=== PATIENT | female | born 1990 | race Caucasian/White ===

== ENCOUNTER 2017-01-03 18:24 | Emergency (ER) | payer MEDICAID ==
[2017-01-03 19:07] LABS: BILIRUBIN,URINE NEGATIVE (NEGATIVE); PH,URINE 6.5 PH (5.0-7.5)
[2017-01-03 19:08] LABS: HCG UR QUAL NEGATIVE; UA CHARGE (STRIP ONLY) YES; UR CULTURE IF IND NOT INDICATED
[2017-01-03] MEDS ORDERED: KETOROLAC 60 MG/2 ML VIAL IVP STA (19:21)
--- NOTE | 2017-01-03 19:23 | ED Physician Documentation ---
PD HPI ABD PAIN - Stated complaint Stated Complaint: abd pain - Chief complaint Chief Complaint: Abd Pain - History obtained from History obtained from: Patient, Family - History of Present Illness Timing - onset: How many days ago (5) Timing - duration: Days (5) Timing - details: Gradual onset, Waxing and waning Pain level max: 7 Pain level now: 7 Quality: Aching, Sharp, Pain Location: Other (R pelvic pain) Improved by: Laying still Worsened by: Moving Associated symptoms: No: Fever, Nausea, Vomiting, Hematemesis, Diarrhea, Constipation, Melena, Hematochezia, Dysuria, Hematuria Similar symptoms before: Has not had sx before Recently seen: Not recently seen - Additional information Additional information: LMP 2 weeks ago Review of Systems Ten Systems: 10 systems reviewed and negative Constitutional: denies: Fever, Chills Nose: denies: Rhinorrhea / runny nose, Congestion Cardiac: denies: Chest pain / pressure Respiratory: denies: Cough GI: denies: Abdominal Pain, Nausea, Vomiting, Diarrhea : denies: Dysuria, Frequency, Hesitancy, Discharge, Now EGA Skin: denies: Rash Musculoskeletal: denies: Neck pain, Back pain Neurologic: denies: Headache PD PAST MEDICAL HISTORY - Past Medical History Respiratory: Asthma Psych: Depression, Anxiety - Past Surgical History Past Surgical History: No - Present Medications Home Medications: Ambulatory Orders Medication Instructions Recorded Confirmed Prazosin [Minipress] 2 mg PO DAILY 10/24/15 10/24/15 buPROPion [Wellbutrin Sr] 200 mg PO DAILY 10/24/15 10/24/15 Albuterol Sulf [Ventolin Hfa PRN 01/03/17 Inhaler] Amitriptyline [Elavil] 0 mg PO QPM 01/03/17 01/03/17 Hydrocodone/Acetaminophen 1 - 2 each PO Q6H PRN #14 tablet 01/03/17 [Hydrocodon-Acetaminophen 5-325] Ibuprofen [Motrin] 800 mg PO Q8H PRN #30 tablet 01/03/17 Venlafaxine ER [Effexor ER] 1 tab DAILY 01/03/17 01/03/17 - Allergies Allergies/Adverse Reactions: Allergies Allergy/AdvReac Type Severity Reaction Status Date / Time No Known Drug Allergies Allergy Verified 01/03/17 18:37 - Social History Does the pt smoke?: No Smoking Status: Never smoker Does the pt drink ETOH?: No Does the pt have substance abuse?: No - Immunizations Immunizations are current?: Yes PD ED PE NORMAL - Vitals Vital signs reviewed: Yes - General General: Alert and oriented X 3, No acute distress - HEENT HEENT: Moist mucous membranes - Neck Neck: Supple, no meningeal sign - Cardiac Cardiac: RRR - Respiratory Respiratory: No respiratory distress, Clear bilaterally - Abdomen Abdomen: Soft, Non distended, Other (TTP R low pelvic) - Rectal Rectal: Pt declined - Back Back: No CVA TTP, No spinal TTP - Derm Derm: Warm and dry - Neuro Neuro: Alert and oriented X 3 - Psych Psych: Normal mood, Normal affect Results - Vitals Vitals: Vital Signs - 24 hr 01/03/17 01/03/17 01/03/17 18:34 21:14 23:23 Temperature 36.5 C Heart Rate 92 81 77 Respiratory 20 16 16 Rate Blood Pressure 125/71 119/77 122/72 O2 Saturation 99 98 97 Oxygen O2 Source Room air - Labs Labs: Laboratory Tests 01/03/17 01/03/17 01/03/17 18:58 19:10 19:10 WBC 8.1 RBC 4.06 L Hgb 12.6 Hct 36.7 L MCV 90.4 MCH 30.9 MCHC 34.2 RDW 13.1 Plt Count 278 MPV 7.8 L Neut # 5.3 Lymph # 2.2 Ray # 0.4 Eos # 0.2 Baso # 0.1 Absolute Nucleated RBC 0.00 Nucleated RBCs 0.0 Sodium 138 Potassium 4.0 Chloride 106 Carbon Dioxide 24 Anion Gap 8.0 BUN 10 Creatinine 0.8 Estimated GFR (MDRD) 88 L Glucose 119 H Calcium 9.2 Total Bilirubin 0.5 AST 24 ALT 31 Alkaline Phosphatase 64 Total Protein 7.5 Albumin 3.7 Globulin 3.8 Albumin/Globulin Ratio 1.0 Lipase 17 L Urine Color YELLOW Urine Clarity CLEAR Urine pH 6.5 Ur Specific [place] 1.025 Urine Protein NEGATIVE Urine Glucose (UA) NEGATIVE Urine Ketones NEGATIVE Urine Occult Blood NEGATIVE Urine Nitrite NEGATIVE Urine Bilirubin NEGATIVE Urine Urobilinogen 0.2 (NORMAL) Ur Leukocyte Esterase NEGATIVE Ur Microscopic Review NOT INDICATED Urine Culture Comments NOT INDICATED Urine HCG, Qual NEGATIVE - Rads (name of study) pelvic US Radiology: Prelim report reviewed, EMP read contemporaneously, See rad report ( Enlarged right ovary with a complex 2.9 cm right ovarian cyst most consistent with a hemorrhagic cyst or corpus luteum. Probable 3.6 cm right ovarian follicle. Enlarged right ovary corresponds to the area of pain. Possible venous flow on the transvaginal imaging. Arterial flow not well seen on transabdominal or transvaginal imaging. Suboptimal doppler flow may be due to body habitus and position of the ovaries along with large cysts. Possible venous flow would argue against complete torsion although intermittent torsion not excluded. 2. No left ovarian mass or torsion. 3. No endometrial mass or polyp. Normal uterus. ) PD MEDICAL DECISION MAKING - ED course Complexity details: reviewed results, re-evaluated patient, considered differential, d/w patient, d/w family, d/w obiee consultant ED course: Patient is a 26-year-old female with right pelvic pain. Found to have an enlarged right ovary with a complex right ovarian cyst, likely hemorrhagic cyst. Also a 3.6 cm right ovarian follicle. There was a question of possible intermittent torsion or torsion. Consulted gynecology, Dr. Miranda who came and evaluated the patient in the emergency department. Does not feel the patient has an ovarian torsion and feels that she is stable for discharge. Patient will follow up as an outpatient. Pain well controlled in the emergency department. No fevers. No vomiting. Patient counseled regarding signs and symptoms for which I believe and urgent re-evaluation would be necessary. Patient with good understanding of and agreement to plan and is comfortable going home at this time This document was made in part using voice recognition software. While efforts are made to proofread this document, sound alike and grammatical errors may occur. Departure - Departure Disposition: 01 Home, Self Care Clinical Impression: Ovarian cyst Qualifiers: Laterality: right Qualified Code(s): N83.201 - Unspecified ovarian cyst, right side Condition: Good Instructions: ED Cyst Ovarian Follow-Up: Claribel Schneider ARNP [Primary Care Provider] - Within 1 week Prescriptions: Hydrocodone/Acetaminophen [Hydrocodon-Acetaminophen 5-325] 1 - 2 each PO Q6H PRN #14 tablet PRN Reason: pain Ibuprofen [Motrin] 800 mg PO Q8H PRN #30 tablet PRN Reason: PAIN &/OR FEVER Comments: Return if you worsen. This should improve over the next few days to a week. Do not drink alcohol or drive while on narcotic pain medicine. Note that many narcotic pain relievers also contain tylenol/acetaminophen. Please ensure that your total dose of acetaminophen from all sources does not exceed 3 grams (3000mg) per day. You may constipated on this medication, take a stool softener such as "Colace" twice a day while you are on it. Also recommend a ybza-qrb-iyymfih laxative such as senna or MiraLAX any day that you do not have a bowel movement. If you received narcotic pain medication in the emergency department, do not drive or operate machinery for the next 24 hours. Discharge Date/Time: 01/03/17 23:24
[2017-01-03] MEDS ORDERED: KETOROLAC 30 MG/ML VIAL IVP STA (19:25)
[2017-01-03] MEDS ORDERED: KETOROLAC 30 MG/ML VIAL ONE (19:26)
[2017-01-03 19:31] LABS: BILIRUBIN,TOTAL 0.5 mg/dL (0.2-1.0); CALCIUM 9.2 mg/dL (8.5-10.3); CREATININE 0.8 mg/dL (0.4-1.0); TOTAL PROTEIN 7.5 g/dL (6.7-8.2)
[2017-01-03 19:33] LABS: BASOPHILS # (AUTO) 0.1 10^3/uL (0.0-0.1); BASOPHILS % (AUTO) 0.7 %; EOSINOPHILS # (AUTO) 0.2 10^3/uL (0.0-0.7); EOSINOPHILS % (AUTO) 2.1 %; HCT - HEMATOCRIT 36.7 % (37.0-47.0); HGB - HEMOGLOBIN 12.6 g/dL (12.0-16.0); LYMPHOCYTES # (AUTO) 2.2 10^3/uL (1.5-3.5); LYMPHOCYTES % (AUTO) 27.5 %; MEAN CORPUSCULAR HEMOGLOBIN 30.9 pg (27.0-31.0); MEAN CORPUSCULAR HGB CONC 34.2 g/dL (32.0-36.0); MEAN CORPUSCULAR VOLUME 90.4 fL (81.0-99.0); MEAN PLATELET VOLUME 7.8 fL (7.9-10.8); MONOCYTES # (AUTO) 0.4 10^3/uL (0.0-1.0); MONOCYTES % (AUTO) 4.9 %; NEUTROPHILS # (AUTO) 5.3 10^3/uL (1.5-6.6); NEUTROPHILS % (AUTO) 64.8 %; RED BLOOD COUNT 4.06 10^6/uL (4.20-5.40); RED CELL DISTRIBUTION WIDTH 13.1 % (12.0-15.0); UNCORRECTED WHITE BLOOD COUNT 8.1 x10^3/uL; WHITE BLOOD COUNT 8.1 x10^3/uL (4.8-10.8)
--- NOTE | 2017-01-03 21:32 | Ultrasound Report ---
EXAM: PELVIC ULTRASOUND EXAM DATE: 01/03/2017 09:02 PM. CLINICAL HISTORY: R pelvic pain. COMPARISON: None. TECHNIQUE: Realtime transabdominal pelvic scan performed to identify the uterus and adnexa and as an overview of other pelvic structures, followed by transvaginal scan to provide greater detail of the u terus and adnexa, with static image documentation. FINDINGS: Uterus: 9.1 x 4.1 x 5.4 cm, volume 103 cc. Anteverted position. Normal overall size and echotexture. Masses: None. Endometrium: 11 mm. Normal. Cervix: Unremarkable. Right Ovary: Not well seen. Probable right ovary measures 6.4 x 3.8 x 3.6 cm, volume 46.2 cc. Complex 3.9 x 3.4 x 2.8 cm right ovarian cystic structure with lacelike debris. No vascular components or mu ral nodules. 3.6 x 1.8 x 2.6 cm hypoechoic right ovarian cystic structure without mural nodules or th ickened septations most consistent with a follicle. Unable to establish color or Doppler flow on the transabdominal imaging. Color flow is seen probably adjacent to this right ovary on transabdominal i maging. Possibly venous flow on the transvaginal imaging in the right ovary. Left Ovary: 2.1 x 1.6 x 1.2 cm, volume 2 cc. Normal echotexture and blood flow. Not well seen. Free Fluid: None. Other: None. IMPRESSION: 1. Enlarged right ovary with a complex 2.9 cm right ovarian cyst most consistent with a hemorrhagic c yst or corpus luteum. Probable 3.6 cm right ovarian follicle. Enlarged right ovary corresponds to the area of pain. Possible venous flow on the transvaginal imaging. Arterial flow not well seen on [place] sabdominal or transvaginal imaging. Suboptimal doppler flow may be due to body habitus and position of the ovaries along with large cysts. Possible venous flow would argue against complete torsion alt roxy intermittent torsion not excluded. 2. No left ovarian mass or torsion. 3. No endometrial mass or polyp. Normal uterus. Comment: Study limited by body habitus. [facility] Referring Provider Line: [phone] SITE ID: [id number]
[2017-01-03] MEDS ORDERED: HYDROcod/ACETAM 5/325 MG TABLET PO STA (23:04)
[2017-01-03] MEDS ORDERED: HYDROcod/ACETAM 5/325 MG TABLET ONE (23:14)
[2017-01-03 23:24] VITALS: BP 122/72
--- NOTE | 2017-01-04 07:54 | CONSULTATION NOTE ---
DATE OF CONSULTATION: 01/03/2017 00:00:00 REQUESTING PROVIDER: Luis Gonzalez MD IDENTIFICATION: A 26-year-old, G1, P1-0-0-1. LMP 12/17/2016. HISTORY OF PRESENT ILLNESS: The patient presents to [facility] with complaints of right lower quadrant pain. She states that the pain started last week as a dull ache. Two days ago she went to the [facility], and she states that she moved to little bit funny, and the pain hurt a lot more. On Tuesday she was having some abdominal pain, but it was tolerable. This morning she woke up, and the pain was much, much worse. The pain is described as sharp, and there is no relationship to movement. The patient states that there is also no relationship with respect to diet. She hurts when she is stationary as well as when walking. It also hurts when she is sitting on the toilet. She called her primary care at [facility], who unfortunately did not get back to her this evening. The patient states that the pain is located in the right lower quadrant and does not radiate. Currently, she states the pain is 7/8 and at worse 10/10. The pain is described as a sharp, stabbing, knife-like sensation. After the sharp pains occur, she does have a dull sensation afterwards. The pain has been a sharp and dull sensation throughout the day. Patient states that she has never had this type of pain before. Anything close to this sort of pain was when she was in labor with her son, and also when she had an episode of right lower quadrant pain in high school, which initially was thought to be appendicitis but later attributed to gastroenteritis. Patient states that she denies any fevers or chills, but she has been having some significantly loose stools in the last day as well as today. Yesterday she had 4-5 stools and today only twice. She had a more significant pain when she was having a bowel movement. She denies any hematuria. With respect to urination , she denies any difficulty emptying her bladder, dysuria, or hematuria. PAST MEDICAL HISTORY 1. Anxiety and depression. 2. Asthma. 3. Morbid obesity. PAST SURGICAL HISTORY: None. ALLERGIES: NO KNOWN ALLERGIES. MEDICATIONS 1. Prazosin 2 mg 1 tab p.o. daily. 2. Bupropion 200 mg 1 tab p.o. daily. 3. Albuterol p.r.n. 4. Amitriptyline q.p.m. 5. Venlafaxine 1 tab p.o. daily. SOCIAL HISTORY: She denies any tobacco or illicit drug use. She does consume alcohol on a rare but social basis. She is accompanied today by her fianceOdalys, whom she has been with for the last 3 years and anticipates to next February. The patient has a son, Ihsan, who was born on 11/05/2012, and apparently he is staying with his father this summer, since patient has had some psychiatric issues. Ihsan is currently getting worked up for an autism spectrum disorder. Apparently they have a lot of good programs especially for occupational therapy in [place], where he is currently residing. Her pharmacy is [facility] in [place]. Her psychiatrist is Rod Douglass MD, and her PCP is ISAC Johnson. PAST OBSTETRICAL HISTORY 1. One term spontaneous vaginal delivery of son Ihsan on 11/05/2012. 2. Patient is currently using the Ortho-Evra patch for control. She was on the Mirena IUD but felt that it affected her psychiatrically. PAST GYNECOLOGICAL HISTORY: She denies any abnormal Pap smears. When not on hormones, patient and does have irregular menses. They do not occur on a monthly basis, and apparently they are pretty long and with a large amount of blood. Patient likes this form of control but states that she eventually would like to have children with her fianceOdalys. FAMILY HISTORY: Noncontributory. REVIEW OF SYSTEMS: Negative unless otherwise stated. OBJECTIVE VITAL SIGNS: Temperature is 36.5, heart rate 92, respiratory rate 20, and blood pressure 125/71, O2 saturation 99. GENERAL: The patient is an obese female with artificially dyed hair, which is pinkish in coloration. She does have her roots her natural color of red. When I entered the room, she was smiling and talking with her fiance, Odalys. She appears to be quite comfortable on the gurney. After I excused myself to get some equipment and returned, both she and her fiance were on their respective cell phones, sitting there quite comfortably again. HEENT: Within normal limits. ABDOMEN: Obese with generalized tenderness in the left lower quadrant. FEMALE EXAM: EGBUS within normal limits. Vagina is pink and moist. Cervix without any cervical motion tenderness. Adnexal exam very difficult to appreciate, given the patient's body habitus. There is some generalized right lower quadrant pain and tenderness, but I could not appreciate the exact location of the ovaries. LABORATORY: Urinalysis is negative, as is the hCG qualitative screen. IMAGING: Prelim of the pelvic ultrasound was indeterminate. It was not confidently identified if there was or was not any flow to the right adnexa. There appeared to be 2 cysts, 1 hemorrhagic and 1 simple. ASSESSMENT 1. A 26-year-old, G1, P1-0-0-1. 2. Right lower quadrant pain. I do not think it is ovarian torsion at this time. PLAN: After observing the patient in the emergency department, I do not feel that she has ovarian torsion at this time. It is, however, the differential diagnosis, as well as gastroenteritis, given her history of diarrhea. I would recommend at this time that the patient be monitored and given pain medications , and to return should she have any worsening symptoms of her pain. I will be happy consult on the patient if her symptoms change. JOB #: [id number] EXT JOB #:[id number] IRVING
== END 2017-01-03 23:24 | disposition home or self-care (01) ==
LOC: ED 18:24
DX: N83.201 Unspecified ovarian cyst, right side (principal); F41.8 Other specified anxiety disorders; J45.909 Unspecified asthma, uncomplicated; E66.01 Morbid (severe) obesity due to excess calories
CPT/HCPCS: 36415; 76830; 76856; 80053; 81003; 81025; 83690; 85025; 93975; 96374; 99283; 99284; A9270; 81001; 87086

== ENCOUNTER 2017-03-31 13:07 | Outpatient (CLI) | payer MEDICAID ==
--- NOTE | 2017-04-01 12:04 | Ultrasound Report ---
PELVIC ULTRASOUND: 03/31/2017 CLINICAL INDICATION: Pain. TECHNIQUE: Transabdominal pelvic ultrasound performed for global evaluation. Transvaginal pelvic ul trasound performed for detailed evaluation. Real-time scanning performed and static images obtained. FINDINGS: The uterus is anteverted, measuring 10.9 x 5.0 x 4.0 cm. The endometrial echo complex renetta sures 12 mm. No focal myometrial lesion is present. The right ovary measures 3.1 x 2.2 x 1.6 cm, an d the left ovary measures 2.3 x 1.9 x 1.7 cm. No free fluid is present. IMPRESSION: NORMAL PELVIC ULTRASOUND. JOB #: [id number] EXT JOB #:[id number]
== END 2017-03-31 13:08 | disposition home or self-care (01) ==
LOC: DI 13:07
PROVIDERS: ATTEND Registered Nurse
DX: R10.2 Pelvic and perineal pain (principal)
CPT/HCPCS: 76830; 76856

== ENCOUNTER 2019-07-23 08:00 | Outpatient (CLI) | payer MEDICAID ==
[2019-07-23 18:32] LABS: BASOPHILS % (AUTO) 0.7 %; EOSINOPHILS # (AUTO) 0.2 10^3/uL (0.0-0.7); EOSINOPHILS % (AUTO) 2.5 %; HGB - HEMOGLOBIN 14.2 g/dL (12.0-16.0); LYMPHOCYTES # (AUTO) 1.8 10^3/uL (1.5-3.5); LYMPHOCYTES % (AUTO) 29.2 %; MEAN CORPUSCULAR HEMOGLOBIN 30.4 pg (27.0-31.0); MEAN CORPUSCULAR HGB CONC 32.5 g/dL (32.0-36.0); MEAN CORPUSCULAR VOLUME 93.6 fL (81.0-99.0); MEAN PLATELET VOLUME 10.2 fL (7.9-10.8); MONOCYTES # (AUTO) 0.4 10^3/uL (0.0-1.0); MONOCYTES % (AUTO) 6.3 %; NEUTROPHILS # (AUTO) 3.7 10^3/uL (1.5-6.6); PLT - PLATELET COUNT 336 10^3/uL (130-450); RED BLOOD COUNT 4.67 10^6/uL (4.20-5.40); WHITE BLOOD COUNT 6.1 x10^3/uL (4.8-10.8)
[2019-07-23 18:55] LABS: ALBUMIN 4.5 g/dL (3.2-5.5); ALBUMIN/GLOBULIN RATIO 1.6 (1.0-2.2); BILIRUBIN,TOTAL 1.4 mg/dL (0.2-1.0); CALCIUM 9.2 mg/dL (8.5-10.3); CREATININE 0.9 mg/dL (0.4-1.0); TOTAL PROTEIN 7.3 g/dL (6.7-8.2)
== END 2019-07-23 23:59 | disposition home or self-care (01) ==
LOC: LAB.WCP 08:00
PROVIDERS: ATTEND Physician Assistant
DX: Z79.899 Other long term (current) drug therapy (principal); Z86.2 Personal history of diseases of the blood and blood-forming organs and certain disorders involving the immune mechanism
CPT/HCPCS: 36415; 80053; 85025

== ENCOUNTER 2019-09-05 10:32 | Emergency (ER) | payer MEDICAID ==
[2019-09-05] MEDS ORDERED: ONDANSETRON ODT 4 MG TABLET TL STA (11:08)
[2019-09-05] MEDS ORDERED: ACETAMINOPHEN 325 MG TABLET PO STA (11:08)
[2019-09-05] MEDS ORDERED: HYOSCYAMINE SL 0.125 MG TABLET SL STA (11:08)
--- NOTE | 2019-09-05 11:13 | ED Physician Documentation ---
History of Present Illness - Stated complaint Stated Complaint: ABD PX/NAUSEA - Chief complaint Chief Complaint: General - History obtained from History obtained from: Patient - History of Present Illness Timing: Today Pain level max: 8 Pain level now: 8 - Additonal information Additional information: 28-year-old female presents to the emergency department complaining of diffuse abdominal pain today. She relates this as "exquisite pain". She is unable to describe this any further. She states that she had diarrhea this morning as well. This is the third time she has had similar symptoms over the past 3 weeks. They normally resolve within 24 hours. No fever. She did not take anything for the pain. Nothing makes it better or worse. Other people at home have been sick with similar symptoms. Patient is not , breast-feeding or trying to become . She has an IUD in place. Review of Systems Ten Systems: 10 systems reviewed and negative Constitutional: denies: Fever, Chills Nose: denies: Rhinorrhea / runny nose, Congestion Respiratory: denies: Cough GI: reports: Nausea, Diarrhea. denies: Vomiting : denies: Dysuria, Frequency, Hesitancy, Now EGA Skin: denies: Rash Musculoskeletal: denies: Neck pain, Back pain Neurologic: denies: Headache PD PAST MEDICAL HISTORY - Past Medical History Respiratory: Asthma Psych: Depression, Anxiety - Past Surgical History Past Surgical History: No - Present Medications Home Medications: Ambulatory Orders Medication Instructions Recorded Confirmed Prazosin [Minipress] 2 mg PO DAILY 10/24/15 10/24/15 buPROPion [Wellbutrin Sr] 200 mg PO DAILY 10/24/15 10/24/15 Albuterol Sulf [Ventolin Hfa PRN 01/03/17 Inhaler] Amitriptyline [Elavil] 0 mg PO QPM 01/03/17 01/03/17 Hydrocodone/Acetaminophen 1 - 2 each PO Q6H PRN #14 tablet 01/03/17 [Hydrocodon-Acetaminophen 5-325] Ibuprofen [Motrin] 800 mg PO Q8H PRN #30 tablet 01/03/17 Venlafaxine ER [Effexor ER] 1 tab DAILY 01/03/17 01/03/17 Dicyclomine [Bentyl] 10 mg PO QID PRN #20 capsule 09/05/19 Ondansetron Odt [Zofran] 4 mg TL Q6H PRN #10 tablet 09/05/19 - Allergies Allergies/Adverse Reactions: Allergies Allergy/AdvReac Type Severity Reaction Status Date / Time No Known Drug Allergies Allergy Verified 09/05/19 10:54 - Social History Does the pt smoke?: No Smoking Status: Never smoker Does the pt drink ETOH?: No Does the pt have substance abuse?: No - Immunizations Immunizations are current?: Yes PD ED PE NORMAL - Vitals Vital signs reviewed: Yes - General General: Alert and oriented X 3, No acute distress, Well developed/nourished - HEENT HEENT: PERRL, Moist mucous membranes - Neck Neck: Supple, no meningeal sign - Cardiac Cardiac: RRR, Strong equal pulses - Respiratory Respiratory: Clear bilaterally - Abdomen Abdomen: Soft, Non distended, Other (Mild diffuse tenderness to palpation. No peritoneal signs.) - Derm Derm: Warm and dry - Extremities Extremities: No calf tenderness / cord - Neuro Neuro: Alert and oriented X 3 - Psych Psych: Normal mood, Normal affect Results - Vitals Vitals: Vital Signs - 24 hr 09/05/19 09/05/19 10:50 12:21 Temperature 36.4 C L Heart Rate 90 90 Respiratory 18 18 Rate Blood Pressure 120/68 120/70 O2 Saturation 97 99 Oxygen O2 Source Room air - Labs Labs: Laboratory Tests 09/05/19 09/05/19 09/05/19 11:18 11:18 11:51 WBC 10.0 RBC 4.67 Hgb 14.8 Hct 43.1 MCV 92.3 MCH 31.7 H MCHC 34.3 RDW 12.7 Plt Count 339 MPV 9.7 Neut # (Auto) 7.6 H Lymph # (Auto) 1.6 [place] # (Auto) 0.6 Eos # (Auto) 0.2 Baso # (Auto) 0.1 Absolute Nucleated RBC 0.00 Nucleated RBC % 0.0 Sodium 140 Potassium 3.8 Chloride 112 H Carbon Dioxide 18 L Anion Gap 10.0 BUN 19 Creatinine 0.7 Estimated GFR (MDRD) 101 Glucose 110 H Calcium 10.0 Total Bilirubin 1.6 H AST 17 ALT 20 Alkaline Phosphatase 54 Total Protein 7.5 Albumin 4.4 Globulin 3.1 Albumin/Globulin Ratio 1.4 Lipase 19 L Urine Color YELLOW Urine Clarity HAZY Urine pH 6.0 Ur Specific [place] 1.025 Urine Protein NEGATIVE Urine Glucose (UA) NEGATIVE Urine Ketones NEGATIVE Urine Occult Blood LARGE H Urine Nitrite NEGATIVE Urine Bilirubin NEGATIVE Urine Urobilinogen 0.2 (NORMAL) Ur Leukocyte Esterase NEGATIVE Urine RBC 0-5 Urine WBC 6-10 H Ur Squamous Epith Cells MANY Squamous H Urine Bacteria Many H Urine Mucus Marked Strands Ur Microscopic Review INDICATED Urine Culture Comments NOT INDICATED Urine HCG, Qual 09/05/19 11:51 WBC RBC Hgb Hct MCV MCH MCHC RDW Plt Count MPV Neut # (Auto) Lymph # (Auto) [place] # (Auto) Eos # (Auto) Baso # (Auto) Absolute Nucleated RBC Nucleated RBC % Sodium Potassium Chloride Carbon Dioxide Anion Gap BUN Creatinine Estimated GFR (MDRD) Glucose Calcium Total Bilirubin AST ALT Alkaline Phosphatase Total Protein Albumin Globulin Albumin/Globulin Ratio Lipase Urine Color Urine Clarity Urine pH Ur Specific [place] 1.025 Urine Protein Urine Glucose (UA) Urine Ketones Urine Occult Blood Urine Nitrite Urine Bilirubin Urine Urobilinogen Ur Leukocyte Esterase Urine RBC Urine WBC Ur Squamous Epith Cells Urine Bacteria Urine Mucus Ur Microscopic Review Urine Culture Comments Urine HCG, Qual NEGATIVE PD MEDICAL DECISION MAKING - ED course Complexity details: reviewed results, re-evaluated patient, considered differential, d/w patient ED course: Patient with diarrhea and abdominal cramping. She is well-appearing, nontoxic. Afebrile. Normal blood work other than mild acidosis likely secondary to diarrhea. Feels better after Bentyl and Levsin. We will provide antispasmodics for home and have her follow-up with her doctor for further care. No indication for CT scan at this time. Patient counseled regarding signs and symptoms for which I believe and urgent re-evaluation would be necessary. Patient with good understanding of and agreement to plan and is comfortable going home at this time This document was made in part using voice recognition software. While efforts are made to proofread this document, sound alike and grammatical errors may occur. Departure - Departure Disposition: 01 Home, Self Care Clinical Impression: Abdominal cramping Diarrhea Qualifiers: Diarrhea type: unspecified type Qualified Code(s): R19.7 - Diarrhea, unspecified Condition: Good Instructions: ED Diet Vomiting Diarrhea Follow-Up: Fara Davey PA [Primary Care Provider] - Within 1 week Prescriptions: Dicyclomine [Bentyl] 10 mg PO QID PRN #20 capsule PRN Reason: Abdominal Pain Ondansetron Odt [Zofran] 4 mg TL Q6H PRN #10 tablet PRN Reason: Nausea / Vomiting Comments: Return if you worsen. Follow-up with your doctor for further care. Drink plenty of fluids and rest. Your laboratory testing does not show any acute abnormalities today. Discharge Date/Time: 09/05/19 12:22
[2019-09-05 11:33] LABS: BASOPHILS # (AUTO) 0.1 10^3/uL (0.0-0.1); BASOPHILS % (AUTO) 0.5 %; EOSINOPHILS # (AUTO) 0.2 10^3/uL (0.0-0.7); HGB - HEMOGLOBIN 14.8 g/dL (12.0-16.0); LYMPHOCYTES # (AUTO) 1.6 10^3/uL (1.5-3.5); MEAN CORPUSCULAR HEMOGLOBIN 31.7 pg (27.0-31.0); MEAN CORPUSCULAR HGB CONC 34.3 g/dL (32.0-36.0); MEAN CORPUSCULAR VOLUME 92.3 fL (81.0-99.0); MEAN PLATELET VOLUME 9.7 fL (7.9-10.8); MONOCYTES # (AUTO) 0.6 10^3/uL (0.0-1.0); MONOCYTES % (AUTO) 5.5 %; NEUTROPHILS # (AUTO) 7.6 10^3/uL (1.5-6.6); NEUTROPHILS % (AUTO) 75.7 %; PLT - PLATELET COUNT 339 10^3/uL (130-450); RED BLOOD COUNT 4.67 10^6/uL (4.20-5.40); RED CELL DISTRIBUTION WIDTH 12.7 % (12.0-15.0)
[2019-09-05 11:47] LABS: ALBUMIN 4.4 g/dL (3.2-5.5); ALBUMIN/GLOBULIN RATIO 1.4 (1.0-2.2); BILIRUBIN,TOTAL 1.6 mg/dL (0.2-1.0); CREATININE 0.7 mg/dL (0.4-1.0); TOTAL PROTEIN 7.5 g/dL (6.7-8.2)
[2019-09-05] MEDS ORDERED: KETOROLAC 60 MG/2 ML VIAL IM STA (12:06)
[2019-09-05] MEDS ORDERED: DICYCLOMINE 10 MG CAPSULE PO STA (12:07)
[2019-09-05 12:12] LABS: BILIRUBIN,URINE NEGATIVE (NEGATIVE); GLUCOSE, URINE (UA) NEGATIVE (NEGATIVE); KETONES,URINE (UA) NEGATIVE (NEGATIVE); LEUKOCYTE ESTERASE, URINE NEGATIVE (NEGATIVE); NITRITE,URINE NEGATIVE (NEGATIVE); OCCULT BLOOD,URINE LARGE (NEGATIVE); PROTEIN,URINE NEGATIVE (NEGATIVE); UROBILINOGEN,URINE 0.2 (NORMAL) E.U./dL (NORMAL)
[2019-09-05 12:16] LABS: CLARITY,URINE HAZY (CLEAR)
[2019-09-05 12:17] LABS: HCG UR QUAL NEGATIVE
[2019-09-05 12:22] VITALS: BP 120/70
[2019-09-05 12:33] LABS: BACTERIA,URINE Many /HPF (None Seen); MUCUS,URINE Marked Strands; RBC,URINE 0-5 /HPF (0-5); SQUAMOUS EPITHELIAL CELL,UR MANY Squamous (<= Few)
== END 2019-09-05 12:22 | disposition home or self-care (01) ==
LOC: ED 10:32
DX: R10.9 Unspecified abdominal pain (principal); R19.7 Diarrhea, unspecified; J45.909 Unspecified asthma, uncomplicated; F32.9 Major depressive disorder, single episode, unspecified; F41.9 Anxiety disorder, unspecified; Z79.51 Long term (current) use of inhaled steroids
CPT/HCPCS: 36415; 80053; 81001; 81025; 83690; 85025; 96372; 99283; 99284; A9270; Q0162; 81003; 87086

== ENCOUNTER 2020-01-30 07:00 | Outpatient (CLI) | payer MEDICAID ==
[2020-01-31 20:27] LABS: CANDIDA GROUP DNA POSITIVE (NEGATIVE); CANDIDA KRUSEI DNA NEGATIVE (NEGATIVE); TRICHOMONAS VAGINALIS DNA NEGATIVE (NEGATIVE)
== END 2020-01-30 23:59 | disposition home or self-care (01) ==
LOC: LAB.R 07:00
PROVIDERS: ATTEND Nurse Practitioner Obstetrics & Gynecology
DX: N76.0 Acute vaginitis (principal)
CPT/HCPCS: 81599; 87491; 87591; 87661; 87801

== ENCOUNTER 2020-10-16 12:59 | Outpatient (CLI) | payer MEDICAID | END 2020-10-16 13:00 | disposition home or self-care (01) | LOC: LAB 12:59 | PROVIDERS: ATTEND Obstetrics & Gynecology | DX: Z87.59 Personal history of other complications of pregnancy, childbirth and the puerperium (principal) | CPT/HCPCS: 36415; 84702 ==